=== PATIENT | female | born 1940 | race Caucasian/White ===

== ENCOUNTER → 2017-07-17 | Day surgery (SDC) | payer MEDICARE, OTHER ==
[~2017-07-17] MED LIST: BUPIVACAINE/EPINEPHRINE 0.25% 50 ML VIAL ONE; HEPARIN SODIUM - IV 10,000 UNITS/10 ML VIAL ONE; LACTATED RINGER'S 1000 ML INJ 1,000 ML ONE; LIDOCAINE 1%/EPINEPHrine 1:200,000 PF SOLN 30 ML VIAL ONE; MIDAZOLAM HCL 2 MG/2 ML VIAL ONE; PROPOFOL 500 MG/50 ML BTL IV ONE; RESP: ALBUTEROL 2.5 MG/3 ML NEB (SCH) ONE; SODIUM CHLORIDE 0.9% INJ 10 ML ONE
--- NOTE | 2017-07-22 14:18 | TN ---
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 PROCEDURE 1. Left subclavian Infusaport placement. 2. Intraoperative interpretation of fluoroscopic images interpreted by . ATTENDING SURGEON [employer] AEROGRAPHER Staff. ANESTHESIA TIVA and local anesthetic. ESTIMATED BLOOD LOSS 10 cc. COMPLICATIONS None. FINDINGS Tip of the Infusaport catheter in the atriocaval junction on fluoroscopy. INDICATION FOR PROCEDURE The patient is a 77-year-old female with a large pancreatic adenocarcinoma at the neck of the pancreas. She is recommend to undergo neoadjuvant chemoradiation as well as induction chemotherapy and an Infusaport is required. The risks, benefits and alternatives to the Infusaport were discussed with the patient prior to the procedure and the patient agreed to undergo the procedure. DETAILS OF PROCEDURE The patient was taken to the operating room and placed in a supine position, placed under TIVA anesthetic at the [facility]. The left chest and neck were prepped and draped in sterile fashion. A timeout was performed. Local anesthetic was instilled at the planned port site as well as the planned pocket site for the Infusaport. We accessed the left subclavian vein without difficulty with an 18-gauge needle provided in the 8-Upper [employer] PowerPort Infusaport kit. Once we passed the wire without difficulty and confirmed this was in the venous system we extended this port site into a 2.5 cm horizontal incision with a 15 blade scalpel. We used Bovie electrocautery to make a subcutaneous pocket at this site. We used the dilator to dilate the tract and the dilator introducer assembly to introduce the 8-Upper [employer] catheter into the venous system without difficulty and the wire was removed. We confirmed this to be in good position at the atriocaval junction and custom cut this to fit the patient. This was assembled per manufacture's recommendations and placed into the pocket without difficulty. We were able to withdraw blood from this port and this was flushed with heparinized saline. Once we had confirmed this was in good position with no kinking and it sat well in the pocket we turned our attention towards closure. We closed the subcutaneous tissue with 3-0 Vicryl and closed the skin with 4-0 Monocryl and Dermabond. The patient at this point in time was discontinued from anesthesia and taken to PACU in stable condition. The patient tolerated the procedure well with no apparent complications. All counts were correct. I was present and scrubbed for the entire procedure. Giana Sanchez MD AWG/BT /1:47 PM /1:57 PM
== END | disposition home or self-care (01) ==
LOC: ESDC 06:26
PROVIDERS: ATTEND Surgery
DX: Z45.2 Encounter for adjustment and management of vascular access device (principal); C25.9 Malignant neoplasm of pancreas, unspecified
CPT/HCPCS: 00532; 36561; 77001; C1788; J1644; J2250; J3010; J7120; J7613